=== PATIENT | female | born 1950 | race Hispanic/Latino ===

== ENCOUNTER → 2017-05-19 | Outpatient (CLI) | payer MEDICARE ==
[~2017-05-19] MED LIST: REGADENOSON 0.4 MG/5 ML PF SYG IVP SCH
== END | disposition home or self-care (01) ==
LOC: SHCH 09:11
PROVIDERS: ATTEND Internal Medicine Cardiovascular Disease
DX: I10 Essential (primary) hypertension (principal); E78.5 Hyperlipidemia, unspecified; R94.31 Abnormal electrocardiogram [ECG] [EKG]
CPT/HCPCS: 78452; 93017; 96374; A9500 ×2; J2785

== ENCOUNTER → 2017-05-20 | Outpatient (CLI) | payer MEDICARE | END | disposition home or self-care (01) | LOC: EDUNIT# 10:30 → SHCH 11:01 | PROVIDERS: ATTEND Internal Medicine Cardiovascular Disease | DX: I10 Essential (primary) hypertension (principal); E78.5 Hyperlipidemia, unspecified | CPT/HCPCS: 93306 ==

== ENCOUNTER → 2025-03-02 | Outpatient (CLI) | payer OTHER ==
--- NOTE | 2025-03-02 23:49 | HMCIMG ---
ULTRASOUND CAROTID DUPLEX CLINICAL INDICATION Cerebrovascular symptoms. Evaluate for carotid artery stenosis. COMPARISON None. TECHNIQUE Duplex ultrasound evaluation of the bilateral extracranial carotid arteries was performed utilizing real-time [place]ap[place] scale imaging, color Doppler, and spectral Doppler waveform analysis. Peak systolic and end-diastolic velocities were obtained in the common carotid, internal carotid, external carotid, and vertebral arteries. Right: ARTERY VELOCITY E C A 147 cm/sec I C A 138 cm/sec C C A 57 cm/sec I C A / C C A 2.4 Vertebral Flow Antegrade Left: ARTERY VELOCITY E C A 103 cm/sec I C A 95 cm/sec C C A 53 cm/sec I C A / C C A 1.8 Vertebral Flow Antegrade Surrounding soft tissues of the neck show no evidence of masses, adenopathy or fluid collections. No carotid body tumor is present. There is no evidence of arteriovenous malformation seen. IMPRESSION * Mild bilateral internal carotid artery atherosclerotic disease with less than 50 percent stenosis by Doppler velocity criteria. * Elevated peak systolic velocity in the right internal carotid artery measuring approximately 138 cm/s, attributed to vessel tortuosity rather than hemodynamically significant stenosis. * Patent bilateral external carotid arteries with normal antegrade flow in the bilateral vertebral arteries. RECOMMENDATIONS According to ACR Appropriateness Criteria, no surgical or endovascular intervention is indicated for carotid artery stenosis of less than 50 percent. Continued medical management and risk factor modification are recommended. Follow-up carotid duplex ultrasound may be considered in 12 months or sooner if there is a change in neurologic symptoms. /[place]
--- NOTE | 2025-03-03 08:33 | HMCSR ---
APPROVED REPORT EXAM: Two-dimensional and M-mode echocardiogram with Doppler and color Doppler. INDICATION ICD: Shortness of breath R06.02 2D Dimensions RVDd 3.2 cm LVEF(%) 80.3 (>50%) LVED Vol(simp.) 78.0 mL IVSd 1.1 (0.7-1.1cm) FS(%) 49 % LVES Vol(simp.) 30.0 mL LVDd 4.2 (3.8-5.6cm) LA (2D) 3.6 (1.6-4.0cm) LVEF(%, simp.) 61 % PWd 0.9 (0.7-1.1cm) Ao Root(2D) 2.8 (2.0-3.7cm) LA ESV INDEX (BP) 25.59 mL/m2 LVDs 2.2 (2.5-4.0cm) LVOT diam 2.0 (1.8-2.4cm) IVC diam 1.2 cm M-Mode Dimensions EPSS 0.6 cm LA (MM) 4.0 (1.6-4.0cm) Ao Root(MM) 2.8 (2.0-3.7cm) Aortic Valve AoV Vmax 2.8 m/s Ao Peak GR 31.3 mmHg LVOT Vmax 1.0 m/s AoV VTI 0.7 m Ao Mean GR 16.7 mmHg LVOT VTI 0.25 m ELLIOT (VMAX) 1.11 cm2 ELLIOT (VTI) 1.1 cm2 Mitral Valve MV E Vmax 76.1 cm/s DECEL Time 274 ms MV A Vmax 96.1 cm/s P 1/2 T 99 ms E/A ratio 0.8 MVA (PHT) 2.2 cm2 TDI E/E' Medial 15.8 E/E' Lateral 13.8 Medial E' Peak V 4.83 cm/s Lateral E' Peak V 5.52 cm/s Pulmonary Valve PV Vmax 1.0 m/s PV Mean GR 2.2 mmHg PV Peak GR 3.8 mmHg Tricuspid Valve TR Vmax 1.9 m/s RVSP 15.7 mmHg TR Peak GR 15.7 mmHg Left Ventricle The left ventricle is normal size. There is normal LV segmental wall motion. There is normal left ventricular wall thickness. LVEF is 60-65%. No left ventricle thrombus noted on this study. Stage I diastolic dysfunction. Right Ventricle The right ventricle is normal size. The right ventricular systolic function is normal. Atria The left atrium size is normal. The right atrium size is normal. Aortic Valve Aortic valve is mildly calcified. No aortic regurgitation is present. There is mild to moderate valvular aortic stenosis. Highest mean aortic valve gradient is 18mmHg, highest pk gradient 34mmHg. Calculated ELLIOT is 1.1cm2. Mitral Valve The mitral valve is normal in structure and function. There is no evidence of significant mitral regurgitation. There is no mitral valve stenosis. Tricuspid Valve The tricuspid valve is normal in structure. There is mild tricuspid valve regurgitation noted. Pulmonic Valve The pulmonary valve is normal in structure. There is no pulmonic valvular regurgitation. Great Vessels The aortic root is normal in size. The IVC is normal in size and collapses >50% with inspiration. Pericardium There is no pericardial effusion. Conclusion The left ventricle is normal size. LVEF is 60-65%. The right ventricle is normal size. The left atrium size is normal. Aortic valve is mildly calcified. No aortic regurgitation is present. There is mild to moderate valvular aortic stenosis. Highest mean aortic valve gradient is 18mmHg, highest pk gradient 34mmHg. Calculated ELLIOT is 1.1cm2. The mitral valve is normal in structure and function. There is mild tricuspid valve regurgitation noted. There is no pulmonic valvular regurgitation. The aortic root is normal in size. The IVC is normal in size and collapses >50% with inspiration. There is no pericardial effusion.
== END ==
LOC: RAH 11:08
PROVIDERS: ATTEND Internal Medicine Cardiovascular Disease
DX: I08.2 Rheumatic disorders of both aortic and tricuspid valves (principal); R06.02 Shortness of breath; I25.10 Atherosclerotic heart disease of native coronary artery without angina pectoris; I65.23 Occlusion and stenosis of bilateral carotid arteries
CPT/HCPCS: 93306; 93880